=== PATIENT | male | born 1980 | race Caucasian/White ===

== ENCOUNTER 2020-11-28 15:46 | Inpatient (IN) | payer OTHER ==
[~2020-11-28] VITALS: Ht 175.3 cm; Wt 154.7 kg
[2020-11-28 16:39] LABS: BASOPHIL 0.3 % (0-2); EOSINOPHIL 0 % (0-5); HCT 44.7 % (42.0-52.0); HGB 14.7 g/dl (13.2-18.0); LYMPHOCYTE 22.8 % (15-48); MCH 28.4 pg (25.0-31.0); MCHC 32.9 g/dL (32.0-36.0); MCV 86.3 fL (78.0-100.0); MONOCYTE 5.3 % (0-12); MPV 9.5 fL (6.0-9.5); NEUTROPHIL 70.6 % (41-80); NRBC 0; PLT 170 K/uL (150-400); RBC 5.18 M/uL (4.70-6.00); RDW 13.7 % (11.5-14.0); WBC 5.8 K/uL (4.0-10.5)
[2020-11-28 16:58] LABS: BILIRUBIN - TOTAL 0.4 mg/dL (0.2-1.0); BUN/CREAT RATIO (CALC) 11.7 RATIO; CREATININE 0.94 mg/dL (0.67-1.17); GLOBULIN (CALCULATION) 3.4 g/dL; POTASSIUM 3.7 mmol/L (3.5-5.1); TOTAL PROTEIN 6.4 g/dL (6.4-8.2)
[2020-11-28 17:03] LABS: INR 1.11 (0.9-1.2); PROTHROMBIN TIME 13.7 SECONDS (11.8-13.4); PTT 34.8 SECONDS (24.4-34.7)
[2020-11-28 17:04] LABS: D-DIMER 1.06 ug/mLFEU (0.00-0.41)
[2020-11-28 17:06] LABS: LACTIC ACID 1.6 mmol/L (0.4-1.9)
[2020-11-28 20:02] LABS: AMPHETAMINES NEGATIVE (NEGATIVE); BARBITURATES NEGATIVE (NEGATIVE); ECSTASY (MDMA) NEGATIVE (NEGATIVE); MARIJUANA (THC) NEGATIVE (NEGATIVE); METHADONE NEGATIVE (NEGATIVE); OPIATES NEGATIVE (NEGATIVE); OXYCODONE NEGATIVE (NEGATIVE)
[2020-11-28 20:03] LABS: BILIRUBIN NEGATIVE (NEGATIVE); BLOOD TRACE-INTACT Ery/uL (NEGATIVE); CLARITY CLEAR (CLEAR); COLOR YELLOW (YELLOW); GLUCOSE (U) NORMAL (NORMAL); LEUKOCYTES NEGATIVE Leu/uL (NEGATIVE); NITRITE NEGATIVE (NEGATIVE); PROTEIN 1+ mg/dL (NEGATIVE); SPECIFIC GRAVITY <=1.005 (1.001-1.030); UROBILINOGEN 0.2 mg/dL (0.2-1.0)
[2020-11-28 20:10] LABS: BACTERIA TRACE; MUCOUS TRACE; URINARY WBC RARE
[2020-11-29 07:22] LABS: HCT 44.7 % (42.0-52.0); HGB 14.9 g/dl (13.2-18.0); MCH 28.9 pg (25.0-31.0); MCHC 33.3 g/dL (32.0-36.0); MCV 86.6 fL (78.0-100.0); MPV 9.6 fL (6.0-9.5); RBC 5.16 M/uL (4.70-6.00); RDW 13.7 % (11.5-14.0)
[2020-11-29 07:36] LABS: BUN/CREAT RATIO (CALC) 16.1 RATIO; CREATININE 0.62 mg/dL (0.67-1.17); MAGNESIUM 2.1 mg/dL (1.8-2.4); PHOSPHORUS 2.4 mg/dL (2.6-4.7)
== END 2020-11-29 20:50 | disposition other institution (70) | DRG 177 ==
LOC: FER 15:46 → FTCU 11-29 10:43
PROVIDERS: Emergency Medicine; ADMIT Internal Medicine
PROC: 5A0935A Assistance with Respiratory Ventilation, Less than 24 Consecutive Hours, High Flow/Velocity Cannula (ICD-10-PCS; principal; 2020-11-29)
PROC: XW033E5 Introduction of Remdesivir Anti-infective into Peripheral Vein, Percutaneous Approach, New Technology Group 5 (ICD-10-PCS; 2020-11-29)
PROC: 8E0ZXY6 Isolation (ICD-10-PCS; 2020-11-29)
PROC: XW0DXM6 Introduction of Baricitinib into Mouth and Pharynx, External Approach, New Technology Group 6 (ICD-10-PCS; 2020-11-29)
DX: U07.1 COVID-19 (principal); J96.01 Acute respiratory failure with hypoxia; J12.82 Pneumonia due to coronavirus disease 2019; G93.41 Metabolic encephalopathy; J18.9 Pneumonia, unspecified organism; G47.33 Obstructive sleep apnea (adult) (pediatric); E66.9 Obesity, unspecified; Z88.5 Allergy status to narcotic agent; Z98.890 Other specified postprocedural states
CPT/HCPCS: 36415; 36600; 70450; 71045; 71275; 80048; 80053; 80305; 81001; 82803; 82962; 83605; 83735; 83880; 84100; 84484; 85025; 85379; 85610; 85730; 87040; 93005; 94640; 94660; C9399; G0480; J0456; J0696; J1100; J1650; J1885; J2060; J7030; J7050; J8540; Q9967; U0002